=== PATIENT | female | born 1975 | race Caucasian/White ===

== ENCOUNTER 2017-06-17 22:12 | Emergency (ER) | payer OTHER ==
[2017-06-17 22:16] VITALS: BP 134/79
== END 2017-06-17 23:57 | disposition home or self-care (01) ==
LOC: ED 22:12
DX: J06.9 Acute upper respiratory infection, unspecified (principal); H92.03 Otalgia, bilateral; J02.9 Acute pharyngitis, unspecified
CPT/HCPCS: J1885; J8540

== ENCOUNTER 2018-10-01 09:48 | Emergency (ER) | payer OTHER ==
[~2018-10-01] VITALS: Ht 157.5 cm; Wt 90.3 kg
[2018-10-01 09:49] VITALS: Ht 157.5 cm; Wt 90.3 kg
[2018-10-01 10:33] LABS: microscopic required? NO
[2018-10-01 10:43] LABS: CALCIUM 8.7 mg/dL (8.5-10.1); CHLORIDE SERUM 104 mmol/L (98-107); CREATININE SERUM 0.7 mg/dL (0.6-1.0); GFR1 > 60 mL/min; GLUCOSE SERUM 92 mg/dL (74-106); SODIUM SERUM 139 mmol/L (136-145)
[2018-10-01 10:47] LABS: ALKALINE PHOSPHATASE 86 U/L (46-116); ALT/SGPT 23 U/L (14-59); AST/SGOT 15 U/L (15-37); BILIRUBIN TOTAL 0.2 mg/dL (0.20-1.00); TOTAL PROTEIN, SERUM 7.7 g/dL (6.4-8.2)
[2018-10-01 10:48] LABS: ALBUMIN 2.9 g/dL (3.4-5.0)
[2018-10-01 10:52] LABS: BASOPHIL % 0.6 % (0-2); PLATELET COUNT 334 x10^3mcL (130-400); RED CELL DISTRIBUTION WIDTH 19.7 % (11.5-14.5)
[2018-10-01 10:57] LABS: T3 TOTAL 2.24 ng/mL
[2018-10-01 11:02] LABS: FREE T4 0.85 ng/dL (0.76-1.46); FREE THYROXINE INDEX 2.2 ug/dL (1.4-4.5); T4(THYROXINE) 10.7 ug/dL (4.7-13.3)
[2018-10-01 11:04] LABS: UA SPECIFIC GRAVITY 1.025 (1.005-1.035); urine erythrocyte NEGATIVE (NEGATIVE)
[2018-10-01 12:33] VITALS: BP 126/77
== END 2018-10-01 12:33 | disposition home or self-care (01) ==
LOC: ED 09:48
PROVIDERS: Emergency Medicine
DX: R00.2 Palpitations (principal); G89.29 Other chronic pain; M54.2 Cervicalgia; M54.5 Low back pain; R51 Headache; R50.9 Fever, unspecified; R06.02 Shortness of breath; E07.9 Disorder of thyroid, unspecified; M06.9 Rheumatoid arthritis, unspecified
CPT/HCPCS: 84439; 85378; J1885; J3010; J7030; Q0092

== ENCOUNTER 2019-02-25 13:46 | Emergency (ER) | payer OTHER ==
[~2019-02-25] VITALS: Ht 162.6 cm; Wt 96.6 kg
[2019-02-25 13:51] VITALS: Ht 162.6 cm; Wt 96.6 kg
[2019-02-25 14:47] LABS: BASOPHIL % 0.4 % (0-2)
[2019-02-25 14:54] LABS: CALCIUM 8.3 mg/dL (8.5-10.1); CARBON DIOXIDE 28.7 mmol/L (21-32); CHLORIDE SERUM 104 mmol/L (98-107); CREATININE SERUM 0.6 mg/dL (0.6-1.0); GFR1 > 60 mL/min; GLUCOSE SERUM 96 mg/dL (74-106); POTASSIUM SERUM 3.8 mmol/L (3.5-5.1); SODIUM SERUM 140 mmol/L (136-145)
[2019-02-25 14:59] LABS: ALKALINE PHOSPHATASE 82 U/L (46-116); ALT/SGPT 20 U/L (14-59); AST/SGOT 16 U/L (15-37); BILIRUBIN TOTAL 0.2 mg/dL (0.20-1.00); TOTAL PROTEIN, SERUM 7.6 g/dL (6.4-8.2)
[2019-02-25 15:04] LABS: PLATELET COUNT 432 x10^3mcL (130-400); RED CELL DISTRIBUTION WIDTH 22.1 % (11.5-14.5)
[2019-02-25 15:26] LABS: rbc morphology (normal/abnorm) ABNORMAL (NORMAL)
[2019-02-25 16:29] VITALS: BP 112/53
== END 2019-02-25 16:29 | disposition home or self-care (01) ==
LOC: ED 13:46
PROVIDERS: Emergency Medicine
DX: D50.9 Iron deficiency anemia, unspecified (principal); R53.1 Weakness; R51 Headache; M32.9 Systemic lupus erythematosus, unspecified; M06.9 Rheumatoid arthritis, unspecified; M79.7 Fibromyalgia
CPT/HCPCS: 36415

== ENCOUNTER 2020-02-14 01:48 | Emergency (ER) | payer OTHER ==
[~2020-02-14] VITALS: Ht 162.6 cm; Wt 100.4 kg
[2020-02-14 01:56] VITALS: Ht 162.6 cm; Wt 100.4 kg
[2020-02-14 02:40] VITALS: BP 157/83
== END 2020-02-14 02:40 | disposition home or self-care (01) ==
LOC: ED 01:48
DX: M54.9 Dorsalgia, unspecified (principal); G89.29 Other chronic pain; M79.7 Fibromyalgia; M32.9 Systemic lupus erythematosus, unspecified
CPT/HCPCS: J1885

== ENCOUNTER 2021-02-02 05:35 | Emergency (ER) | payer BC ==
[~2021-02-02] VITALS: Ht 162.6 cm; Wt 98.9 kg
[2021-02-02 05:44] VITALS: Ht 162.6 cm; Wt 98.9 kg
[2021-02-02] MEDS ORDERED: IBU600 M2 PO (08:16)
[2021-02-02] MEDS ORDERED: ULTRAM50 MG PO (08:16)
[2021-02-02 09:02] VITALS: BP 142/97
== END 2021-02-02 09:02 | disposition home or self-care (01) ==
LOC: ED 05:35
DX: M79.671 Pain in right foot (principal); M79.7 Fibromyalgia